=== PATIENT | female | born 1960 | race Caucasian/White ===

== ENCOUNTER 2018-05-05 08:07 | Day surgery (SDC) | payer BC ==
[~2018-05-05] VITALS: Ht 152.4 cm; Wt 64.0 kg
[~2018-05-05 08:07] MED LIST: Aspirin EC81 MG PO; Budeprion Sr150 MG PO; CLOB.05TC TOP; CONEST.625; CYCL10 PO; Estradiol0.5 MG PO; FURO20 PO; HYDCHL12.5 PO; HYDR1TAB94 PO; IBUP800; IBUP800 PO; Norco 5-325 Ta1 EACH PO; OMEP20ER PO; OXYACE7.5T PO; ZOLP10 PO
== END 2018-05-05 13:00 | disposition home or self-care (01) ==
LOC: ORSCSDS 08:07
PROVIDERS: Orthopaedic Surgery
PROC: 0LS24ZZ Reposition Left Shoulder Tendon, Percutaneous Endoscopic Approach (ICD-10-PCS; principal; 2018-05-05 09:30)
PROC: 0LQ24ZZ Repair Left Shoulder Tendon, Percutaneous Endoscopic Approach (ICD-10-PCS; principal; 2018-05-05 09:30)
PROC: 0RNK4ZZ Release Left Shoulder Joint, Percutaneous Endoscopic Approach (ICD-10-PCS; principal; 2018-05-05 09:30)
PROC: 0PBB4ZZ Excision of Left Clavicle, Percutaneous Endoscopic Approach (ICD-10-PCS; principal; 2018-05-05 09:30)
DX: M75.112 Incomplete rotator cuff tear or rupture of left shoulder, not specified as traumatic (principal); M75.22 Bicipital tendinitis, left shoulder; M19.012 Primary osteoarthritis, left shoulder; M75.52 Bursitis of left shoulder; Z79.899 Other long term (current) drug therapy
CPT/HCPCS: C1713; J0171; J1100; J2250; J2310; J2405; J2710; J3010; J7120

== ENCOUNTER → 2018-07-08 | Outpatient (CLI) | payer BC | END | disposition home or self-care (01) | LOC: LAB EV 16:33 → LAB SHORT 16:33 | DX: J02.9 Acute pharyngitis, unspecified (principal) | CPT/HCPCS: 87070 ==

== ENCOUNTER 2020-07-18 07:32 | Day surgery (SDC) | payer BC ==
[~2020-07-18] VITALS: Ht 152.4 cm; Wt 62.4 kg
--- NOTE | 2020-07-18 08:14 | NUR ---
07/18/20 0814 Jessi Carlson 1ST IV IN RIGHT HAND BLEW. PT TOLERATED IT WITHOUT INCIDENT.
== END 2020-07-18 12:00 | disposition home or self-care (01) ==
LOC: ORSCSDS 07:32
PROVIDERS: Orthopaedic Surgery
PROC: 0RNK4ZZ Release Left Shoulder Joint, Percutaneous Endoscopic Approach (ICD-10-PCS; principal; 2020-07-18 09:00)
PROC: 0LU24JZ Supplement Left Shoulder Tendon with Synthetic Substitute, Percutaneous Endoscopic Approach (ICD-10-PCS; principal; 2020-07-18 09:00)
PROC: 0LQ24ZZ Repair Left Shoulder Tendon, Percutaneous Endoscopic Approach (ICD-10-PCS; principal; 2020-07-18 09:00)
PROC: 0RHK44Z Insertion of Internal Fixation Device into Left Shoulder Joint, Percutaneous Endoscopic Approach (ICD-10-PCS; principal; 2020-07-18 09:00)
DX: S46.002A Unspecified injury of muscle(s) and tendon(s) of the rotator cuff of left shoulder, initial encounter (principal); M75.112 Incomplete rotator cuff tear or rupture of left shoulder, not specified as traumatic; I10 Essential (primary) hypertension; Z79.82 Long term (current) use of aspirin; Z79.899 Other long term (current) drug therapy
CPT/HCPCS: A9270-GY; C1713; J0171; J0690; J1100; J2250; J2405; J2704; J3010; J7120

== ENCOUNTER 2021-11-06 08:09 | Day surgery (SDC) | payer BC ==
[~2021-11-06] VITALS: Ht 152.4 cm; Wt 65.8 kg
--- NOTE | 2021-11-06 08:45 | NUR ---
11/06/21 0845 Stephanie White BLOOD DRAWN FOR PRP ANTICOAG ADDED AND DELIVERED TO OR.
== END 2021-11-06 12:09 | disposition home or self-care (01) ==
LOC: ORSCSDS 08:09
PROVIDERS: Orthopaedic Surgery
PROC: 0JBD0ZZ Excision of Right Upper Arm Subcutaneous Tissue and Fascia, Open Approach (ICD-10-PCS; principal; 2021-11-06 09:30)
PROC: 0LN30ZZ Release Right Upper Arm Tendon, Open Approach (ICD-10-PCS; principal; 2021-11-06 09:30)
DX: M77.11 Lateral epicondylitis, right elbow (principal); I10 Essential (primary) hypertension; M19.90 Unspecified osteoarthritis, unspecified site; Z79.899 Other long term (current) drug therapy
CPT/HCPCS: A9270; J1100; J1885; J2250; J2405; J2704; J2795; J3010; J7120

== ENCOUNTER 2025-05-16 07:38 | Day surgery (SDC) | payer BC ==
[~2025-05-16] VITALS: Ht 152.4 cm; Wt 69.5 kg
[~2025-05-16 07:38] MED LIST changes: +Lidocaine HCl 2% 10 ML SDA ONE
[2025-05-16] MEDS ORDERED: CeFAZolin Sodium 2,000 MG VIAL ONE (08:27)
[2025-05-16] MEDS ORDERED: Prinivil10 MG PO (08:33)
[2025-05-16] MEDS ORDERED: FentaNYL Citrate 50 MCG/ML 2 ML Injection ONE ×2 (09:22→10:07)
[2025-05-16] MEDS ORDERED: Ondansetron HCl 2 MG / ML 2ML Vial ONE (09:36)
[2025-05-16] MEDS ORDERED: Dexamethasone Sod Phos 10 MG/ML 1ML VIAL ONE (09:36)
[2025-05-16] MEDS ORDERED: HYDROcodone 5-APAP 325 TAB ONE (11:06)
[2025-05-16 11:33] VITALS: BP 132/72
--- NOTE | 2025-05-16 12:09 | NUR ---
05/16/25 1209 Thiago Galloway PT INITIALLY MAINTAINED O2 >94% IN SDU WITH BREIF DROPS LOW 86%. PT WAS ABLE TO QUICKLY RETURN O2 TO >94% WITH DEEP BREATHS. SHE DENIED SOB, DIZINESS, CP, AND OTHER RESPIRATORY SYMPTOMS, AND NONE WERE OBSERVED. PT WAS GIVEN INCENTIVE SPIROMETER AND INSTRUCTED IN ITS USE. PULSE OXYMETRY WAS SWITCHED TO EAR AT 1102, AND PT MAINTAINED O2 >95% WITH GOOD PLETH WAVE AFTER THAT POINT. PT REPORTED 3/10 PAIN UPON D/C. SHE DESCRIBED PAIN TOLERABLE AND EXPRESSED READINESS TO RETURN HOME . PT VOIDED AND WAS PROVIDED WITH SLING PRIOR TO D/C.
== END 2025-05-16 11:58 | disposition home or self-care (01) ==
LOC: ORSCSDS 07:38
PROVIDERS: Orthopaedic Surgery
PROC: 01N40ZZ Release Ulnar Nerve, Open Approach (ICD-10-PCS; principal; 2025-05-16 09:00)
PROC: 0PBF0ZZ Excision of Right Humeral Shaft, Open Approach (ICD-10-PCS; principal; 2025-05-16 09:00)
DX: G56.21 Lesion of ulnar nerve, right upper limb (principal); M77.01 Medial epicondylitis, right elbow; I10 Essential (primary) hypertension; K21.9 Gastro-esophageal reflux disease without esophagitis; Z79.899 Other long term (current) drug therapy
CPT/HCPCS: A9270; J0690; J1100; J2003; J2405; J2704; J3010; J7120